=== PATIENT | male | born 1970 | race Caucasian/White ===

== ENCOUNTER → 2017-07-06 | Outpatient (CLI) | payer OTHER ==
--- NOTE | 2017-07-07 13:07 | XCELERA REPORT ---
[address] [address] Lower Extremity Arterial Evaluation Name: LUIS HERNANDEZ Age: 46 yrs Gender: Male : 1970 Patient Status: Outpatient Patient Location: Study Date: 07/06/2017 08:25 AM Procedure: A color flow and duplex scan of the lower extremity arteries was performed bilaterally with velocity and waveform anaylsis. Ankle brachial indicies performed. Reason For Study: RT FOOT ULCER Ordering Physician: JOE HOFFMAN Performed By: Kera Garcia Measurements and Calculations Right Left RN OSTOMY PSV 85.5 66.8 cm/sec Prox PFA PSV -87.4 36.3 cm/sec Prox SFA PSV 101.2 92.1 cm/sec Mid SFA PSV -59.4 -63.3 cm/sec Dist SFA PSV -54.1 -57.2 cm/sec Prox Pop A PSV 70.0 70.6 cm/sec Dist WERO PSV 72.0 55.0 cm/sec Dist HOSPITAL NURSE PSV 65.5 57.2 cm/sec Rishi Pedis PSV 63.7 51.5 cm/sec Right Side Arterial Evaluation Normal velocity and triphasic waveforms noted from the Common Femoral artery to the infrageniculate vessels. 0 % stenosis. Ankle Brachial index was not obtainable due to non compressibility. Left Side Arterial Evaluation Normal velocity and triphasic waveforms noted from the Common Femoral artery to the infrageniculate vessels. 0 % stenosis. Ankle Brachial index was not obtainable due to non compressibility. Interpretation Summary Mild hemodynamically significant lesions in the bilateral lower extremities, on duplex imaging, at rest. Quite normal except for non compressibility suggestive of sub clinical atherosclerosis. : JOE HOFFMAN [place]
== END ==
LOC: SP 07:52
PROVIDERS: ATTEND Nurse Practitioner Family
DX: L97.512 Non-pressure chronic ulcer of other part of right foot with fat layer exposed (principal)
CPT/HCPCS: 93925

== ENCOUNTER → 2017-07-23 | Outpatient (CLI) | payer OTHER ==
[2017-07-23 09:48] LABS: ABSOLUTE BASOPHILS # (AUTO) 0.1 10^3/uL (0.0-0.2); ABSOLUTE EOSINOPHILS # (AUTO) 0.1 10^3/uL (0.0-0.6); ABSOLUTE LYMPHOCYTES (AUTO) 2.2 10^3/uL (0.5-4.7); ABSOLUTE MONOCYTES (AUTO) 0.6 10^3/uL (0.1-1.4); ABSOLUTE NEUT (AUTO) 3.6 10^3/uL (1.7-8.2); EOSINOPHILS % (AUTO) 2.1 % (0-6); HEMATOCRIT 45.2 % (37.9-51.0); HEMOGLOBIN 15.6 g/dL (13.5-17.0); HGB HCT DIFFERENCE 1.6; LYMPHOCYTES % (AUTO) 33.9 % (13-45); MEAN CORPUSCULAR HEMOGLOBIN 30.2 pg (27.0-33.4); MEAN CORPUSCULAR HGB CONC 34.6 g/dL (32.0-36.0); MEAN CORPUSCULAR VOLUME 87 fl (80-97); MONOCYTES % (AUTO) 8.9 % (3-13); RED BLOOD COUNT 5.17 10^6/uL (4.35-5.55); RED CELL DISTRIBUTION WIDTH 13.3 % (11.5-14.0); SEGMENTED NEUTROPHILS % (AUTO) 54.1 % (42-78); WHITE BLOOD COUNT 6.6 10^3/uL (4.0-10.5)
[2017-07-23 10:20] LABS: ALANINE AMINOTRANSFERASE 38 U/L (21-72); ALBUMIN 4.6 g/dL (3.5-5.0); ALKALINE PHOSPHATASE 52 U/L (38-126); ANION GAP 13 (5-19); ASPARTATE AMINO TRANSFERASE 20 U/L (17-59); BILIRUBIN,DIRECT 0.4 mg/dL (0.0-0.4); BILIRUBIN,TOTAL 0.7 mg/dL (0.2-1.3); BLOOD UREA NITROGEN 17 mg/dL (7-20); CALCIUM 9.5 mg/dL (8.4-10.2); CARBON DIOXIDE 29 mmol/L (22-30); CHLORIDE 98 mmol/L (98-107); CREATININE RESULT 0.75 mg/dL (0.52-1.25); GLUCOSE 266 mg/dL (75-110); POTASSIUM 5.1 mmol/L (3.6-5.0); SODIUM 140.2 mmol/L (137-145); TOTAL PROTEIN 7.5 g/dL (6.3-8.2)
--- NOTE | 2017-07-23 10:22 | RADIOLOGY REPORT (SQ) ---
EXAM DESCRIPTION: FOOT RIGHT COMPLETE COMPLETED DATE/TIME: 07/23/2017 9:26 am REASON FOR STUDY: NON-PRS CHRONIC ULCER OTH PRT RIGHT FOOT W FAT LAYER EXPOSED COMPARISON: None. NUMBER OF VIEWS: Three views right foot. LIMITATIONS: None. FINDINGS: No fracture or bone lesion. Joint spaces look generally maintained. Mild soft tissue pro minence with more focal superficial density along the skin surface along the plantar aspect of the fo ot underlying the great toe MP joint. Potential callus or soft tissue bunion here. The density miguel g the skin surface may be artifact or regional mild calcification. No metallic retained foreign bodi es are suggested. OTHER: No other significant finding. IMPRESSION: Soft tissue findings as above. Bones of the right foot intact. TECHNICAL DOCUMENTATION: JOB ID: [id number]
[2017-07-23 10:23] LABS: C-REACTIVE PROTEIN < 5.0 mg/L (<10.0)
[2017-07-23 10:37] LABS: ERYTHROCYTE SEDIMENTATION RATE 6 mm/hr (0-15)
== END ==
LOC: OD 08:31
PROVIDERS: ATTEND Nurse Practitioner Family
DX: E11.621 Type 2 diabetes mellitus with foot ulcer (principal); L97.512 Non-pressure chronic ulcer of other part of right foot with fat layer exposed
CPT/HCPCS: 36415; 80053; 83036; 85025; 85652; 86140

== ENCOUNTER → 2017-10-18 | Outpatient (CLI) | payer OTHER ==
--- NOTE | 2017-10-18 13:58 | RADIOLOGY REPORT (SQ) ---
EXAM DESCRIPTION: FOOT RIGHT COMPLETE COMPLETED DATE/TIME: 10/18/2017 9:28 am REASON FOR STUDY: NON-PRS CHRONIC ULCER OTH PRT RIGHT FOOT W FAT LAYER EXPOSED L97.512 NON-PRS [employer] AMOS ULCER OTH PRT RIGHT FOOT W FAT LAYER COMPARISON: None. NUMBER OF VIEWS: Three views. TECHNIQUE: AP, lateral and oblique radiographic images acquired of the right foot. LIMITATIONS: None. FINDINGS: MINERALIZATION: Normal. BONES: No acute fracture or dislocation. No worrisome bone lesions. Moderate-sized plantar calcanea l spur with calcifications/ossification along the plantar fascia JOINTS: No effusions. SOFT TISSUES: There is a small plantar ulcer right 1st metatarsophalangeal joint region with radiopaq ue ointment in the wound. Mild local soft tissue swelling without radiopaque foreign body or soft ti ssue gas. No aggressive demineralization of the right 1st metatarsophalangeal joint sesamoid bones, metatarsal head or base of the great toe proximal phalanx worrisome for osteomyelitis. OTHER: No other significant finding. IMPRESSION: Soft tissue ulcer with local soft tissue swelling. No underlying bony changes worrisome for osteomyelitis TECHNICAL DOCUMENTATION: JOB ID: [id number] [email or web address]- All Rights Reserved
== END ==
LOC: OD 09:07
PROVIDERS: ATTEND Preventive Medicine Undersea and Hyperbaric Medicine
DX: L97.512 Non-pressure chronic ulcer of other part of right foot with fat layer exposed (principal)

== ENCOUNTER → 2017-10-21 | Outpatient (CLI) | payer OTHER ==
--- NOTE | 2017-10-21 15:14 | RADIOLOGY REPORT (SQ) ---
EXAM DESCRIPTION: MRI RT LOWER EXTREMITY COMBO COMPLETED DATE/TIME: 10/21/2017 10:01 am REASON FOR STUDY: non healing ulcer right foot E11.621 TYPE 2 DIABETES MELLITUS WITH FOOT ULCER L97 .512 NON-PRS CHRONIC ULCER OTH PRT RIGHT FOOT W FAT LAYER COMPARISON: Plain radiographs TECHNIQUE: Multiplanar imaging of the right foot to include T1-weighted, postcontrast T1-weighted, a nd T2-weighted images. CONTRAST TYPE AND DOSE: 20 mL Magnevist. RENAL FUNCTION: GFR > 60. LIMITATIONS: None. FINDINGS: BONE MARROW: Marrow edema without cortical disruption of both the 3rd and 1st metatarsals. No finding to suggest osteomyelitis. Possibly posttraumatic. SOFT TISSUES: There is no soft tissue ulcer. Small soft tissue defect along the plantar surface of t he great toe. No involvement of the plantar plate. Well-circumscribed cystic fluid collection adjac ent to the 3rd metatarsal. Possibly a ganglion cysts. OTHER: No other significant finding. IMPRESSION: There is no evidence for osteomyelitis. There is marrow edema of the 1st and 3rd metatarsals possibly post traumatic. Small fluid collectio n having the appearance of ganglion cysts adjacent to the 3rd metatarsal. No soft tissue ulcer ident ified at the site of the plantar surface skin ulcer adjacent to the 1st metatarsal. TECHNICAL DOCUMENTATION: JOB ID: [id number] [employer]- All Rights Reserved Reading location - IP/workstation name: [email or web address]
== END ==
LOC: RAD 08:50
PROVIDERS: ATTEND Preventive Medicine Undersea and Hyperbaric Medicine
DX: E11.621 Type 2 diabetes mellitus with foot ulcer (principal); L97.512 Non-pressure chronic ulcer of other part of right foot with fat layer exposed
CPT/HCPCS: 82565; 73720; A9576

== ENCOUNTER → 2018-09-24 | Outpatient (CLI) | payer OTHER ==
[2018-09-24 13:59] LABS: ABSOLUTE BASOPHILS # (AUTO) 0.1 10^3/uL (0.0-0.2); ABSOLUTE EOSINOPHILS # (AUTO) 0.1 10^3/uL (0.0-0.6); ABSOLUTE LYMPHOCYTES (AUTO) 1.5 10^3/uL (0.5-4.7); ABSOLUTE MONOCYTES (AUTO) 1.5 10^3/uL (0.1-1.4); ABSOLUTE NEUT (AUTO) 10.2 10^3/uL (1.7-8.2); BASOPHILS % (AUTO) 0.7 % (0-2); EOSINOPHILS % (AUTO) 0.6 % (0-6); HEMATOCRIT 40.7 % (37.9-51.0); HEMOGLOBIN 13.7 g/dL (13.5-17.0); LYMPHOCYTES % (AUTO) 10.9 % (13-45); MEAN CORPUSCULAR HEMOGLOBIN 28.2 pg (27.0-33.4); MEAN CORPUSCULAR HGB CONC 33.6 g/dL (32.0-36.0); MEAN CORPUSCULAR VOLUME 84 fl (80-97); MONOCYTES % (AUTO) 11.5 % (3-13); PLATELET COUNT 502 10^3/uL (150-450); RED BLOOD COUNT 4.85 10^6/uL (4.35-5.55); RED CELL DISTRIBUTION WIDTH 13.1 % (11.5-14.0); SEGMENTED NEUTROPHILS % (AUTO) 76.3 % (42-78); TOTAL CELLS COUNTED % (AUTO) 100 %; WHITE BLOOD COUNT 13.3 10^3/uL (4.0-10.5)
[2018-09-24 14:20] LABS: ALANINE AMINOTRANSFERASE 20 U/L (21-72); ALBUMIN 4.6 g/dL (3.5-5.0); ALKALINE PHOSPHATASE 91 U/L (38-126); ANION GAP 16 (5-19); ASPARTATE AMINO TRANSFERASE 12 U/L (17-59); BILIRUBIN,DIRECT 0.5 mg/dL (0.0-0.4); BILIRUBIN,TOTAL 0.8 mg/dL (0.2-1.3); BLOOD UREA NITROGEN 20 mg/dL (7-20); CALCIUM 10.1 mg/dL (8.4-10.2); CARBON DIOXIDE 28 mmol/L (22-30); CHLORIDE 98 mmol/L (98-107); GLUCOSE 275 mg/dL (75-110); POTASSIUM 5.1 mmol/L (3.6-5.0); SODIUM 141.9 mmol/L (137-145); TOTAL PROTEIN 8.3 g/dL (6.3-8.2)
[2018-09-24 14:39] LABS: ERYTHROCYTE SEDIMENTATION RATE 89 mm/hr (0-15)
== END ==
LOC: OD 13:12
PROVIDERS: ATTEND Family Medicine
DX: M54.6 Pain in thoracic spine (principal)
CPT/HCPCS: 36415; 80053; 83036; 85025; 85652

== ENCOUNTER → 2018-09-24 | Outpatient (CLI) | payer OTHER ==
--- NOTE | 2018-09-24 13:27 | RADIOLOGY REPORT (SQ) ---
EXAM DESCRIPTION: MRI THORACIC SPINE COMBO COMPLETED DATE/TIME: 09/24/2018 12:22 pm REASON FOR STUDY: PAIN IN THORACIC SPINE M54.6 PAIN IN THORACIC SPINE COMPARISON: None. TECHNIQUE: Sagittal and Axial imaging includes T1, T2, STIR and gradient echo sequences. T1 post ga dolinium sequences. CONTRAST TYPE AND DOSE: 20 mL Dotarem. RENAL FUNCTION: GFR > 60. LIMITATIONS: None. FINDINGS: LOCALIZER: No worrisome findings. ALIGNMENT: Normal. VERTEBRAE: Subtle height loss T9 and T10. BONE MARROW: Decreased T1 and increased T2 signal T9 and T10 vertebral bodies with relatively normal signal in the pedicles. Well-circumscribed lesion in T12 which is bright on T1 and T2 consistent with hemangioma. HARDWARE: None in the spine. CORD: Normal in size and signal intensity. SOFT TISSUES: No soft tissue masses. THORACIC DISCS T1-T12: No significant spinal stenosis or exit foraminal stenosis. LOWER CERVICAL: Incompletely imaged. No significant spinal stenosis or exit foraminal stenosis. UPPER LUMBAR: Incompletely imaged. No significant spinal stenosis or exit foraminal stenosis. ENHANCEMENT: Enhancement in the bodies of T9 and T10 which its extending into the right pedicles. OTHER: No other significant finding. IMPRESSION: 1. Osteoporotic compression fractures T9 and T10 without retropulsion. Recommend patient return for diffusion sequences if there is any suspicion of bone metastasis/pathologic fracture. TECHNICAL DOCUMENTATION: JOB ID: [id number] [employer]- All Rights Reserved Reading location - IP/workstation name: [email or web address]
== END ==
LOC: RAD 11:06
PROVIDERS: ATTEND Family Medicine
DX: M54.6 Pain in thoracic spine (principal)
CPT/HCPCS: 82565; 72157; A9576